=== PATIENT | female | born 1990 | race Hispanic/Latino ===

== ENCOUNTER 2023-09-27 10:04 | Day surgery (SDC) | payer OTHER ==
[~2023-09-27 10:04] MED LIST: Acetaminophen 325 MG TAB PO PRN; Iron Sucrose Complex 500 MG in Sodium Chloride 0.9% 250 ML 250 ML IVPB SCH; diphenhydrAMINE 25 MG CAP PO PRN
[2023-09-27] MEDS: Ferumoxytol (ERSD) 510 MG in 0.9 % Sodium Chloride 150 ML IVPB SCH (10:53)
[2023-09-27 12:47] VITALS: TEMP 97.7
[2023-09-27 13:23] VITALS: BP 110/56
== END 2023-09-27 13:25 | disposition home or self-care (01) ==
LOC: ONC/OP 10:04
PROVIDERS: ATTEND Student in an Organized Health Care Education/Training Program
DX: D50.9 Iron deficiency anemia, unspecified (principal)
CPT/HCPCS: 96365; Q0139